=== PATIENT | male | born 1980 | race Two or more races ===

== ENCOUNTER 2023-09-06 21:56 | Emergency (ER) | payer OTHER, BC, SELFPAY ==
[2023-09-06 22:08] VITALS: BP 150/90; PULSE 68; RESP 18; TEMP 36.7; O2SAT 95; BMI 37.6
--- NOTE | 2023-09-06 22:19 | ED_ITS ---
HPI - URI/Sore Throat General Chief Complaint: Upper Respiratory Infection Stated Complaint: Fever Time Seen by Provider: 09/06/23 22:12 Source: patient Limitations: no limitations History of Present Illness HPI Narrative: patient ill since yesterday with fever, stuffy nose, watery eyes and body aches. Diarrhea x 3 tonight. No abdominal pain or dyspnea. No associated nausea Related Data Home Medications Medication Instructions Recorded Confirmed lisinopril 20 1 tab PO DAILY 09/06/23 09/06/23 mg-hydrochlorothiazide 25 mg tablet Allergies Allergy/AdvReac Type Severity Reaction Status Date / Time No Known Drug Allergies Allergy Verified 09/06/23 22:08 Review of Systems ROS Status of ROS 10 or more systems reviewed and unremark able except as noted in history and below [facility] Social History Smoking status: Never smoker Exam Constitutional Vital Signs, click to edit/add: Last Vital Signs Temp 98.1 F 09/06/23 22:08 Pulse 68 09/06/23 22:08 Resp 18 09/06/23 22:08 BP 150/90 H 09/06/23 22:08 Pulse Ox 95 09/06/23 22:08 O2 Del Method Room Air 09/06/23 22:08 Common normals: no apparent distress, average body habitus, oriented x3, no limitations, healthy appearing and alert Eye Common normals: EOMs intact bilaterally Other: conjunctiva injected bilat Respiratory Common normals: normal respiratory effort, no retractions and no use of accessory muscles Cardio Common normals: regular rate, regular rhythm, S1 normal heart sound and S2 normal heart sound GI Common normals: Normal to inspection, nondistended, normoactive bowel sounds present, soft to palpation and non-tender Extremity Common normals: normal to inspection and full ROM Neuro Common normals: oriented x3, CN's II-XII intact bilaterally, moves all extremities, no focal motor deficits and no sensory deficits noted Psych Appearance: grossly normal Course Vital Signs Vital signs: Vital Signs Temperature 98.1 F 09/06/23 22:08 Pulse Rate 68 09/06/23 22:08 Respiratory Rate 18 09/06/23 22:08 Blood Pressure 150/90 H 09/06/23 22:08 Pulse Oximetry 95 09/06/23 22:08 Oxygen Delivery Method Room Air 09/06/23 22:08 Temperature 98.1 F 09/06/23 22:08 Pulse Rate 68 09/06/23 22:08 Respiratory Rate 18 09/06/23 22:08 Blood Pressure 150/90 H 09/06/23 22:08 Pulse Oximetry 95 09/06/23 22:08 Oxygen Delivery Method Room Air 09/06/23 22:08 MDM - URI/Sore Throat MDM Narrative Medical decision making narrative: patient presents with body aches, fever ,runny nose and watery eyes. No dyspnea. No vomiting. Did have non bloody diarrhea today. Swab returns positive for COVID19. We discussed Paxlovid but this is day 4 of his illness and he is in no distress and decided agaist it. Patient discharged home and advised to drink fluids and use anti pyretics Lab Data Labs: Lab Results 09/06/23 09/06/23 Range/Units 22:13 22:30 WBC 5.9 (4.0-11.0) 10^3/uL RBC 4.64 L (4.70-6.10) 10^6/uL Hgb 13.5 L (14.0-18.0) g/dL Hct 41.1 L (42.0-54.0) % MCV 88.6 (80.0-94.0) fL MCH 29.1 (25.9-34.0) pg MCHC 32.8 (29.9-35.2) g/dL RDW 12.8 (11.0-15.0) % Plt Count 186 (150-450) 10^3/uL MPV 10.2 (9.5-13.5) fL Neut % (Auto) 60.7 (43.0-75.0) % Lymph % (Auto) 22.1 (20.5-60.0) % [place] % (Auto) 13.6 H (1.7-12.0) % Eos % (Auto) 2.5 (0.9-7.0) % Baso % (Auto) 0.8 (0.2-2.0) % Neut # (Auto) 3.6 (1.4-6.5) 10^3/uL Lymph # (Auto) 1.3 (1.2-3.8) 10^3/uL [place] # (Auto) 0.8 (0.3-0.8) 10^3/uL Eos # (Auto) 0.2 (0.0-0.7) 10^3/uL Baso # (Auto) 0.1 (0.0-0.1) 10^3/uL Abs Immat Gran (auto) 0.02 (0.00-0.03) 10^3/uL Imm/Tot Granulo (auto) 0.3 (0.0-0.5) % Sodium 137 (136-145) mmol/L Potassium 3.4 L (3.5-5.1) mmol/L Chloride 104 (98-107) mmol/L Carbon Dioxide 26.9 (21.0-32.0) mmol/L Anion Gap 9.5 BUN 14.0 (7.0-18.0) mg/dL Creatinine 0.99 (0.70-1.30) mg/dL Est GFR ( Amer) >60 (>=60) Est GFR (Non-Af Amer) >60 (>=60) BUN/Creatinine Ratio 14.1 Glucose 111 H (74-106) mg/dL Calcium 8.3 L (8.5-10.1) mg/dL Total Bilirubin 0.3 (0.2-1.0) mg/dL AST 36 (15-37) U/L ALT 65 H (16-63) U/L Alkaline Phosphatase 98 (46-116) U/L Total Protein 6.8 (6.4-8.2) g/dL Albumin 3.4 (3.4-5.0) g/dL Globulin 3.4 g/dL Albumin/Globulin Ratio 1.0 Adenovirus (PCR) Not detected (NOT DETECTE) C. pneumoniae DNA (PCR) Not detected (NOT DETECTE) Coronavirus Type OC43 Not detected (NOT DETECTE) Coronavirus Type HKU1 Not detected (NOT DETECTE) Coronavirus Type 229E Not detected (NOT DETECTE) Coronavirus Type NL63 Not detected (NOT DETECTE) Human Metapneumovir PCR Not detected (NOT DETECTE) M. pneumoniae (PCR) Not detected (NOT DETECTE) Parainfluenza PCR Not detected (NOT DETECTE) Parainfluenza 2 (PCR) Not detected (NOT DETECTE) Parainfluenza 3 (PCR) Not detected (NOT DETECTE) Parainfluenza 4 (PCR) Not detected (NOT DETECTE) RSV (RT-PCR) Not detected (NOT DETECTE) Entero/Rhino (PCR) Not detected (NOT DETECTE) SARS-CoV-2 (PCR) Detected A (NOT DETECTE) Bordetella pertussis (PCR) Not detected (NOT DETECTE) B parapertussis DNA PCR Not detected (NOT DETECTE) Influenza Type A (PCR) Not detected (NOT DETECTE) Influenza Type B (PCR) Not detected (NOT DETECTE) Discharge Plan Discharge Chief Complaint: Upper Respiratory Infection Clinical Impression: COVID-19 Patient Disposition: Home, Self-Care Prescriptions / Home Meds: No Action lisinopril-hydrochlorothiazide 20-25 mg tablet 1 tab PO DAILY Instructions: How to Recover from COVID-19 at Home (ED) Stand Alone Forms: Portal Instructions Referrals: [facility] [Primary Care Provider] - 1 week
[2023-09-06 22:24] LABS: Adenovirus NOT DETECTED (NOT DETECTE); Bordetella parapertussis NOT DETECTED (NOT DETECTE); Coronavirus 229E NOT DETECTED (NOT DETECTE); Coronavirus HKU1 NOT DETECTED (NOT DETECTE); Coronavirus NL63 NOT DETECTED (NOT DETECTE); Coronavirus OC43 NOT DETECTED (NOT DETECTE); Human Metapneumovirus NOT DETECTED (NOT DETECTE); Human Rhinovirus/Enterovirus NOT DETECTED (NOT DETECTE); Influenza A NOT DETECTED (NOT DETECTE); Influenza B NOT DETECTED (NOT DETECTE); Mycoplasma pneumoniae NOT DETECTED (NOT DETECTE); Parainfluenza Virus 1 NOT DETECTED (NOT DETECTE); Parainfluenza Virus 2 NOT DETECTED (NOT DETECTE); Parainfluenza Virus 3 NOT DETECTED (NOT DETECTE); Parainfluenza Virus 4 NOT DETECTED (NOT DETECTE); Respiratory Syncytial Virus NOT DETECTED (NOT DETECTE)
--- NOTE | 2023-09-06 22:32 | PC.NURSE ---
patient states he started having fevers yesterday. 101.5 was the highest. reports nasal congestion with clear drainage. no cough, clear bilat lung sounds. patient has had intermittant chills. noone else in the house is sick
[2023-09-06 22:36] LABS: Basophils Absolute Auto 0.1 10^3/uL (0.0-0.1); Basophils Percent Auto 0.8 % (0.2-2.0); Eosinophils Absolute Auto 0.2 10^3/uL (0.0-0.7); Eosinophils Percent Auto 2.5 % (0.9-7.0); Hematocrit 41.1 % (42.0-54.0); Hemoglobin 13.5 g/dL (14.0-18.0); Immature Granulocytes Abs Auto 0.02 10^3/uL (0.00-0.03); Immature Granulocytes Pct Auto 0.3 % (0.0-0.5); Lymphocytes Absolute Auto 1.3 10^3/uL (1.2-3.8); Lymphocytes Percent Auto 22.1 % (20.5-60.0); Mean Corpuscular HGB Conc 32.8 g/dL (29.9-35.2); Mean Corpuscular Hemoglobin 29.1 pg (25.9-34.0); Mean Corpuscular Volume 88.6 fL (80.0-94.0); Mean Platelet Volume 10.2 fL (9.5-13.5); Monocytes Absolute Auto 0.8 10^3/uL (0.3-0.8); Monocytes Percent Auto 13.6 % (1.7-12.0); Neutrophils Absolute Auto 3.6 10^3/uL (1.4-6.5); Neutrophils Percent Auto 60.7 % (43.0-75.0); Platelet Count 186 10^3/uL (150-450); Red Blood Count 4.64 10^6/uL (4.70-6.10); Red Cell Distribution Width 12.8 % (11.0-15.0); White Blood Count 5.9 10^3/uL (4.0-11.0)
[2023-09-06 22:50] LABS: Alanine Aminotransferase 65 U/L (16-63); Albumin Level 3.4 g/dL (3.4-5.0); Alkaline Phosphatase 98 U/L (46-116); Anion Gap 9.5; Aspartate Amino Transferase 36 U/L (15-37); BUN Creatinine Ratio 14.1; Bilirubin Total 0.3 mg/dL (0.2-1.0); Calcium 8.3 mg/dL (8.5-10.1); Carbon Dioxide 26.9 mmol/L (21.0-32.0); Chloride 104 mmol/L (98-107); Estimated GFR (African America >60 (>=60); Estimated GFR (Non-African Ame >60 (>=60); Globulin 3.4 g/dL; Glucose 111 mg/dL (74-106); Potassium 3.4 mmol/L (3.5-5.1); Sodium 137 mmol/L (136-145); Total Protein 6.8 g/dL (6.4-8.2)
[2023-09-06 23:14] LABS: SARS-CoV-2 DETECTED (NOT DETECTE)
[2023-09-06 23:38] VITALS: BP 152/86; PULSE 69; RESP 18; O2SAT 99
== END 2023-09-06 23:38 | disposition home or self-care (01) ==
PROVIDERS: Emergency Provider Internal Medicine
DX: U07.1 COVID-19 (principal); Z79.899 Other long term (current) drug therapy
CPT/HCPCS: 0202U; 36415; 80053; 85025; 99283